=== PATIENT | male | born 1985 | race Caucasian/White ===

== ENCOUNTER 2019-01-14 08:04 | Emergency (ER) | payer OTHER, SELFPAY ==
[~2019-01-14] VITALS: Ht 180.3 cm; Wt 84.1 kg
[2019-01-14] MEDS ORDERED: SERO1TAB3 PO (08:12)
[2019-01-14] MEDS ORDERED: TOPI200T7 PO (08:12)
[2019-01-14] MEDS ORDERED: DIVA1CAP PO (08:12)
[2019-01-14] MEDS ORDERED: NS 1,000 ML IV ONE (08:45)
[2019-01-14 10:01] LABS: BASO % 0.4 % (0.0-1.0); EOS % 0.2 % (0.0-3.0); HEMATOCRIT 48.1 % (42.0-52.0); HEMOGLOBIN 16.9 g/dl (13.5-17.5); LYMPH # 1.3 10^3/uL (1.5-4.5); LYMPH % 25.2 % (24.0-44.0); MEAN CORPUSCULAR HEMOGLOBIN 31.2 pg (27.0-33.0); MEAN CORPUSCULAR HGB CONC 35.1 g/dl (32.0-36.5); MEAN CORPUSCULAR VOLUME 88.7 fl (80.0-96.0); MONO # 0.9 10^3/uL (0.0-0.8); MONO % 16.7 % (0.0-5.0); NEUTROPHILS % 57.3 % (36.0-66.0); PLATELET COUNT, AUTOMATED 134 10^3/uL (150-450); RED BLOOD COUNT 5.42 10^6/uL (4.30-6.10); WHITE BLOOD COUNT 5.2 10^3/uL (4.0-10.0)
[2019-01-14 10:22] LABS: ALT/SGPT 24 U/L (12-78); BILIRUBIN,DIRECT 0.1 MG/DL (0.0-0.2); BILIRUBIN,TOTAL 0.6 MG/DL (0.2-1.0); BLOOD UREA NITROGEN 17 MG/DL (7-18); CARBON DIOXIDE LEVEL 24 MEQ/L (21-32); CHLORIDE LEVEL 105 MEQ/L (98-107); CREATININE FOR GFR 1.24 MG/DL (0.70-1.30); GLOMERULAR FILTRATION RATE > 60.0 (>60); GLUCOSE, FASTING 87 MG/DL (70-100); LIPASE 161 U/L (73-393); POTASSIUM SERUM 3.3 MEQ/L (3.5-5.1); SODIUM LEVEL 137 MEQ/L (136-145); TOTAL PROTEIN 7.7 GM/DL (6.4-8.2)
[2019-01-14] MEDS ORDERED: ONDA4TAB6 PO (11:52)
[2019-01-14] MEDS ORDERED: POTASSIUM CHLORIDE 10 MEQ SR TABLET PO ONE (12:00)
[2019-01-14 12:08] VITALS: BP 119/76
== END 2019-01-14 12:09 | disposition home or self-care (01) ==
LOC: M ED 08:04
DX: A08.4 Viral intestinal infection, unspecified (principal); F31.9 Bipolar disorder, unspecified; F43.10 Post-traumatic stress disorder, unspecified; Z79.899 Other long term (current) drug therapy